=== PATIENT | male | born 1995 | race American Indian/Alaskan Native ===

== ENCOUNTER 2018-11-17 13:41 | Emergency (ER) | payer SELFPAY ==
[2018-11-17 13:45] VITALS: BP 137/81
--- NOTE | 2018-11-17 13:47 | Emergency Department Report ---
Blank Doc - Documentation Documentation: This is a 23-year-old male that presents with left hand lac from a glass bottle. Denies being UTD with tetanus. This initial assessment/diagnostic orders/clinical plan/treatment(s) is/are subject to change based on patient's health status, clinical progression and re-assessment by fellow clinical providers in the ED. Further treatment and workup at subsequent clinical providers discretion. Patient/guardians urged not to elope from the ED as their condition may be serious if not clinically assessed and managed. Initial orders include: 1- Patient sent to [facility] for further evaluation and treatment.
== END 2018-11-17 15:27 | disposition left against medical advice (07) ==
LOC: ED 13:41
DX: M79.642 Pain in left hand (principal); Z53.21 Procedure and treatment not carried out due to patient leaving prior to being seen by health care provider